=== PATIENT | male | born 1965 | race Caucasian/White ===

== ENCOUNTER 2024-02-11 15:16 | Emergency (ER) | payer SELFPAY ==
[~2024-02-11] VITALS: Ht 182.9 cm; Wt 109.1 kg
[2024-02-11 15:19] VITALS: BP 148/78; TEMP 98.3
[2024-02-11] MEDS ORDERED: DOXYCYCLINE 10100 MG PO (15:36)
[2024-02-11 15:52] VITALS: PULSE 94
== END 2024-02-11 15:51 | disposition home or self-care (01) ==
LOC: COL.ER 15:16
DX: L03.314 Cellulitis of groin (principal); F17.210 Nicotine dependence, cigarettes, uncomplicated